=== PATIENT | male | born 1945 | race Caucasian/White ===

== ENCOUNTER 2017-11-06 12:40 | Inpatient (IN) | payer OTHER, MEDICARE ==
--- NOTE | 2017-11-06 13:57 | PDOC ---
Attending Attestation - HPI HPI: 11/06/17 14:08 The patient is a 72 year old male, current cigarette smoker (2 cigarettes daily ) with coronary artery disease (four stents) who presents to the emergency department with urinary retention fever and chills since today. He reports experiencing similar symptoms in the past. The patient denies any alleviating and modifying factors. The patient denies any abdominal pain, diarrhea, vomiting, and back pain. - Physicial Exam PE: 11/06/17 14:15 Vitals: Triage Vital signs reviewed General Appearance: no acute distress, well nourished well developed, Head: Atraumatic, normocephalic Eyes: Pupils equal reactive round, extraocular movement intact Throat: mucous membranes moist, Neck: Supple;No Nuchal rigidity Chest Wall: Nontender Cardiac: Regular rate and rhythm, no murmurs, no rubs, no gallops, Lungs: Clear to auscultation bilateral, good air movement bilaterally, Abdomen: Soft, nondistended, normal bowel sounds, nontender to palpation Rectal: Exam deferred Extremities: Full range of motion to all extremities, no cyanosis, clubbing, or edema Skin: Warm and dry, no rashes or lesions, no petechiae Neuro: AOX3; Cranial Nerves 2-12 grossly c intact, Strength intact to all extremities, Sensation intact to all extremities, gait normal Psych: normal mood, normal affect - Medical Decision Making 11/06/17 14:00 Documentation prepared by Chela Su, acting as paramedical aide for Kevon Peralta MD. <Chela Su - Last Filed: 11/06/17 14:08> - Resident Resident Name: Tobi Fuller - ED Attending Attestation I have performed the following: I have examined & evaluated the patient, The case was reviewed & discussed with the resident, I agree w/resident's findings & plan, Exceptions are as noted - Medical Decision Making 11/06/17 16:23 History and examination consistent with urinary obstruction secondary to UTI. Patient slightly hypotensive upon arrival. IV fluids ordered. Pressure responded appropriately. Lactic within normal limits. Patient covered with ceftriaxone. The to medicine for further management. Urology consult. <Kevon Peralta - Last Filed: 11/06/17 16:23>
[2017-11-06] MEDS ORDERED: SODIUM CHLORIDE 0.9% 1000 ML INFUS.BAG IV STA ×2 (14:01→14:04)
[2017-11-06] MEDS ORDERED: LIDOCAINE HCL 2% JELLY 10 ML CARTRIDGE ONE (14:35)
[2017-11-06 14:53] LABS: BASO % 0.1 % (0-2.0); HEMATOCRIT 38.9 % (35.4-49); HEMOGLOBIN 12.7 GM/dL (11.7-16.9); LYMPH % 4.2 % (8-40); MCH 31.3 pg (25.7-33.7); MCHC 32.7 g/dl (32.0-35.9); MEAN CELL VOLUME 95.6 fl (80-96); MEAN PLT VOLUME 9.4 fl (7.5-11.1); MONO % 10.7 % (3.8-10.2); PLATELET COUNT 176 K/MM3 (134-434); RBC 4.07 M/mm3 (4.00-5.60); RDW 13.5 % (11.9-15.9); WHITE BLOOD COUNT 11.7 K/mm3 (4.0-10.0)
--- NOTE | 2017-11-06 14:57 | PDOC ---
History of Present Illness - General Chief Complaint: Urinary Problem Stated Complaint: URINARY PROBLEM Time Seen by Provider: 11/06/17 13:26 History Source: Patient Exam Limitations: No Limitations - History of Present Illness Initial Comments: 11/06/17 14:51 Patient is a 72M with history of BPH, urinary obstruction requiring prior stallings placement, CAD s/p stenting, HTN, and HLD here today complaining of dysuria and urinary retention. He states that he had dysuria yesterday then stopped being able to urinate starting last night, approximately 16 hours ago. He endorses associated fevers and chills. Denies abdominal pain, nausea, vomiting, chest pain, and shortness of breath. Urologist: Dr Marcus Ivey PCP: Dr Efren Ivey Past History - Past Medical History Allergies/Adverse Reactions: Allergies Allergy/AdvReac Type Severity Reaction Status Date / Time No Known Allergies Allergy Verified 11/06/17 12:55 Home Medications: Ambulatory Orders Unobtainable 11/06/17 Anemia: No Cancer: No Cardiac Disorders: Yes (CAD) CVA: No COPD: No CHF: No Diabetes: No HTN: Yes Hypercholesterolemia: Yes - Surgical History Cardiac Surgery: Yes (mLAD 2.13 stents) - Suicide/Smoking/Psychosocial Hx Smoking Status: Yes Smoking History: Current every day smoker Have you smoked in the past 12 months: No Number of Cigarettes Smoked Daily: 2 Information on smoking cessation initiated: No Hx Alcohol Use: No Drug/Substance Use Hx: No Substance Use Type: None Review of Systems - Review of Systems Comments:: 11/06/17 14:55 GENERAL/CONSTITUTIONAL: Positive for fevers and chills. No weakness. HEAD, EYES, EARS, NOSE AND THROAT: No change in vision. No sore throat. CARDIOVASCULAR: No chest pain or shortness of breath RESPIRATORY: No cough, wheezing, or hemoptysis. GASTROINTESTINAL: No nausea, vomiting, diarrhea or constipation. GENITOURINARY: Positive for dysuria and urinary frequency. MUSCULOSKELETAL: No joint or muscle swelling or pain. No neck or back pain. SKIN: No rash NEUROLOGIC: No headache, vertigo, loss of consciousness, or change in strength/ sensation. HEMATOLOGIC/LYMPHATIC: No anemia, easy bleeding, or history of blood clots. ALLERGIC/IMMUNOLOGIC: No hives or skin allergy. *Physical Exam - Vital Signs Last Vital Signs Temp Pulse Resp BP Pulse Ox 100.9 F H 95 H 18 90/44 99 11/06/17 13:50 11/06/17 12:50 11/06/17 12:50 11/06/17 12:50 11/06/17 12:50 - Physical Exam Comments: 11/06/17 14:56 GENERAL: Awake, alert, and fully oriented, in no acute distress HEAD: No signs of trauma, normocephalic, atraumatic EYES: PERRLA, EOMI, sclera anicteric, conjunctiva clear ENT: Auricles normal inspection, hearing grossly normal, nares patent, oropharynx clear without exudates. Moist mucosa LUNGS: No distress, speaks full sentences, clear to auscultation bilaterally HEART: Regular rate and rhythm, normal S1 and S2, no murmurs, rubs or gallops, peripheral pulses normal and equal bilaterally. ABDOMEN: Soft, nontender, normoactive bowel sounds. No guarding, no rebound. No masses EXTREMITIES: Normal inspection, Normal range of motion, no edema. No clubbing or cyanosis. NEUROLOGICAL: Cranial nerves II through XII grossly intact. Normal speech, no focal sensorimotor deficits SKIN: Warm, Dry, normal turgor, no rashes or lesions noted. ED Treatment Course - LABORATORY CBC & Chemistry Diagram: 11/06/17 14:01 11/06/17 14:30 - RADIOLOGY Radiology Studies Ordered: Category Date Time Status CHEST X-RAY PORTABLE* [RAD] Stat Radiology 11/06/17 14:01 Ordered - Medications Given in the ED: ED Medications Discontinued Medications Generic Name Dose Route Start Last Admin Trade Name Freq PRN Reason Stop Dose Admin Sodium Chloride 1,107 ml 11/06/17 14:01 11/06/17 14:40 Normal Saline - 20 ml/kg (1107 ml) 11/06/17 14:02 Not Given IV ONCE STA Medical Decision Making - Medical Decision Making 11/06/17 14:57 72M with history of CAD s/p stenting, HTN, HLD, BPH with outlet obstruction with history of stallings placement here today complaining of dysuria and urinary retention. Vital signs notable for HR of 95, fever of 100.9 and BP of 90/44. Septic workup initiated. Believe patient has UTI complicated by urinary obstruction. Will place stallings. Will give 1L of fluids. Will start ceftriaxone once stallings placed and urine culture drawn. 11/06/17 16:21 Laboratory Tests 04/15/13 11/06/17 11/06/17 05:50 14:01 14:30 WBC 11.7 H D Hgb 12.7 D Hct 38.9 D Plt Count 176 D Creatinine 0.9 D 1.4 H D Troponin I < 0.02 Ur Leukocyte Esterase Urine WBC (Auto) 11/06/17 15:01 WBC Hgb Hct Plt Count Creatinine Troponin I Ur Leukocyte Esterase 2+ H Urine WBC (Auto) 52 CBC shows leukocytosis. Cr 1.4, last value 0.9, patient has HIPOLITO. Trop negative. UA positive for UTI. BP after 1L 105/65. Will treat with additional liter of fluid and treat with ceftriaxone. Lactate negative. Dr Marcus Ivey, patient's urologist paged, no response. Placed consult in computer. Will admit to med/surg. *DC/Admit/Observation/Transfer Diagnosis at time of Disposition: UTI (urinary tract infection), HIPOLITO (acute kidney injury) - Discharge Dispostion Condition at time of disposition: Stable Admit: Yes - Referrals Referrals: Efren Ivey MD [Primary Care Provider] - - Patient Instructions - Post Discharge Activity
[2017-11-06 15:05] LABS: INR 1.11 (0.82-1.09); PROTHROMBIN TIME (PATIENT) 12.5 SEC (9.98-11.88)
[2017-11-06 15:08] LABS: ACTIVATED PTT 31.2 SECONDS (26.9-34.4)
[2017-11-06 15:14] LABS: URINE APPEARANCE SLCLOUDY; URINE BILIRUBIN NEGATIVE (NEGATIVE); URINE BLOOD NEGATIVE (NEGATIVE); URINE COLOR AMBER; URINE GLUCOSE (UA) NEGATIVE (NEGATIVE); URINE KETONE NEGATIVE (NEGATIVE); URINE NITRITE NEGATIVE (NEGATIVE)
[2017-11-06 15:15] LABS: URINE LEUK ESTERASE 2+ (NEGATIVE); URINE PROTEIN 1+ (NEGATIVE)
[2017-11-06 15:18] LABS: EPI CELLS RARE /HPF (FEW); URINE MUCUS RARE
[2017-11-06 15:44] LABS: ALBUMIN 3.2 g/dl (3.4-5.0); ALK PHOS 124 U/L (45-117); ANION GAP 8 (8-16); BILIRUBIN,TOTAL 0.5 mg/dL (0.2-1.0); BLOOD UREA NITROGEN 17 mg/dL (7-18); CHLORIDE 104 mmol/L (98-107); CO2 27 mmol/L (21-32); CREATININE 1.4 mg/dL (0.7-1.3); GLUCOSE,RANDOM 112 mg/dL (74-106); POTASSIUM 4.5 mmol/L (3.5-5.1); SGOT/AST 19 U/L (15-37); SGPT/ALT 19 U/L (12-78); SODIUM 139 mmol/L (136-145); TOT PROT 6.9 g/dl (6.4-8.2)
[2017-11-06] MEDS ORDERED: CEFTRIAXONE 1 GM in DEXTROSE 5%-WATER - 50 ML IVPB ONE (15:52)
[2017-11-06] MEDS ORDERED: SODIUM CHLORIDE 1,000 ML IV STA (16:19)
[2017-11-06] MEDS ORDERED: CEFTRIAXONE 1 GM/50 ML BAG ONE (16:26)
[2017-11-06] MEDS ORDERED: ACETAMINOPHEN 325 MG TABLET (FP) PO ONE (18:01)
[2017-11-06] MEDS ORDERED: ACETAMINOPHEN 650 MG/20.3 ML ORAL SOLUTION (CUPS) ONE (18:13)
[2017-11-06 21:36] LABS: VENOUS PC02 36.6 mmHg (38-52); VENOUS PH 7.45 (7.32-7.42)
[2017-11-06 21:37] LABS: VENOUS PO2 42.7 mmHg (28-48)
[2017-11-06 21:47] VITALS: BMI 19.1
[2017-11-07] MEDS: ACETAMINOPHEN 325 MG TABLET (FP) PO PRN ×2 (02:08→16:22)
--- NOTE | 2017-11-07 02:11 | HP ---
Admitting History and Physical - Admission History of Present Illness: Pt is a 72 y/o male with PMH significant for BPH, CAD(s/p stenting), HTN and HLD. Pt presented to the ER bc of dysuria and urinary retention. Pt also complains of fever and chills. He denies any abdominal pain/nausea/vomiting/. In the ER pt found to have WBC of 11.7 and tmax of 102.3. - Past Medical History Cardiovascular: Yes: CAD, HTN, Hyperlipdemia Renal/: Yes: BPH - Past Surgical History Additional Past Surgical History: Cardiac stents - Smoking History Smoking history: Current every day smoker Have you smoked in the past 12 months: No Aproximately how many cigarettes per day: 2 - Alcohol/Substance Use Hx Alcohol Use: No Home Medications - Allergies Allergies/Adverse Reactions: Allergies Allergy/AdvReac Type Severity Reaction Status Date / Time No Known Allergies Allergy Verified 11/06/17 12:55 - Home Medications Home Medications: Ambulatory Orders Ascorbate Calcium [Vitamin C] 0 mg PO DAILY 11/06/17 Multivitamin [Daily Multiple Vitamin] 1 each PO DAILY 11/06/17 Tamsulosin HCl [Flomax] 0.4 mg PO DAILY 11/06/17 Ertapenem Sodium [Invanz -] 1 gm IVPB DAILY vial 11/11/17 Family Disease History - Family Disease History Family History: Unremarkable Review of Systems - Review of Systems Constitutional: reports: Chills, Fever Eyes: reports: No Symptoms HENT: reports: No Symptoms Neck: reports: No Symptoms Cardiovascular: reports: No Symptoms Respiratory: reports: No Symptoms Gastrointestinal: reports: No Symptoms Genitourinary: reports: Dysuria Physical Examination Vital Signs: Vital Signs Temperature 100.8 F H 11/07/17 01:29 Pulse Rate 80 11/06/17 21:41 Respiratory Rate 18 11/06/17 21:41 Blood Pressure 142/96 11/06/17 21:41 O2 Sat by Pulse Oximetry (%) 93 L 11/06/17 21:41 Constitutional: Yes: No Distress Eyes: Yes: WNL HENT: Yes: WNL Neck: Yes: WNL, Supple Cardiovascular: Yes: WNL, Regular Rate and Rhythm Respiratory: Yes: WNL, Regular, CTA Bilaterally Gastrointestinal: Yes: WNL, Normal Bowel Sounds, Soft Musculoskeletal: Yes: WNL Extremities: Yes: WNL Edema: No Neurological: Yes: WNL, Alert, Oriented ...Motor Strength: WNL Labs: CBC, BMP 11/06/17 14:01 11/06/17 14:30 Problem List - Problems (1) UTI (urinary tract infection) Assessment/Plan: Cont IV antibx Follow cultures Cont IVF ID/Uro consult Code(s): N39.0 - URINARY TRACT INFECTION, SITE NOT SPECIFIED (2) HIPOLITO (acute kidney injury) Assessment/Plan: Due to dehydration Cont to monitor Code(s): N17.9 - ACUTE KIDNEY FAILURE, UNSPECIFIED (3) HTN (hypertension) Assessment/Plan: BP stable Code(s): I10 - ESSENTIAL (PRIMARY) HYPERTENSION (4) HLD (hyperlipidemia) Code(s): E78.5 - HYPERLIPIDEMIA, UNSPECIFIED
[2017-11-07] MEDS: DEXTROSE 5%-0.45% SALINE 1,000 ML IV SCH ×2 (04:08→18:56)
[2017-11-07 08:10] LABS: BASO % 0.3 % (0-2.0); EOS % 0.1 % (0-4.5); HEMATOCRIT 35.5 % (35.4-49); HEMOGLOBIN 11.7 GM/dL (11.7-16.9); LYMPH % 8.7 % (8-40); MCH 31.9 pg (25.7-33.7); MCHC 33.1 g/dl (32.0-35.9); MEAN CELL VOLUME 96.4 fl (80-96); MEAN PLT VOLUME 9.8 fl (7.5-11.1); MONO % 10.2 % (3.8-10.2); NEUT % 80.7 % (42.8-82.8); PLATELET COUNT 143 K/MM3 (134-434); RBC 3.69 M/mm3 (4.00-5.60); WHITE BLOOD COUNT 7.5 K/mm3 (4.0-10.0)
[2017-11-07 08:39] LABS: ALBUMIN 2.5 g/dl (3.4-5.0); ALK PHOS 118 U/L (45-117); ANION GAP 7 (8-16); BILIRUBIN,TOTAL 0.5 mg/dL (0.2-1.0); BLOOD UREA NITROGEN 13 mg/dL (7-18); CALCIUM 8.3 mg/dL (8.5-10.1); CHLORIDE 107 mmol/L (98-107); CO2 24 mmol/L (21-32); CREATININE 1.1 mg/dL (0.7-1.3); GLUCOSE,RANDOM 108 mg/dL (74-106); POTASSIUM 4.1 mmol/L (3.5-5.1); SGOT/AST 21 U/L (15-37); SGPT/ALT 19 U/L (12-78); SODIUM 138 mmol/L (136-145); TOT PROT 5.8 g/dl (6.4-8.2)
[2017-11-07] MEDS: TAMSULOSIN HCL 0.4 MG CAP.ER.24H (FP) PO SCH (09:25)
[2017-11-07] MEDS ORDERED: CEFTRIAXONE 1 G/50 ML PREMIX 50 ML IVPB SCH (10:00)
[2017-11-07] MEDS: HEPARIN NA (PORCINE) 5,000 UNITS/ML 1ML VIAL SQ SCH ×2 (10:36→21:27)
[2017-11-07] MEDS: MULTIVITAMINS (DAILY MVI) TABLET (FP) PO SCH (10:36)
--- NOTE | 2017-11-07 12:37 | EKG ---
Test Reason : Blood Pressure : / mmHG Vent. Rate : 065 BPM Atrial Rate : 065 BPM P-R Int : 138 ms QRS Dur : 076 ms QT Int : 392 ms P-R-T Axes : 082 084 082 degrees QTc Int : 407 ms NORMAL SINUS RHYTHM NORMAL ECG WHEN COMPARED WITH ECG OF 14-APR-2013 08:27, NO SIGNIFICANT CHANGE WAS FOUND Confirmed by DARY KEARNS MD ([id number]) on 11/07/2017 12:36:50 PM Referred By: Confirmed By:DARY KEARNS MD
--- NOTE | 2017-11-07 13:13 | CON.ID ---
Consult Consult Specialty:: infectious iseases Referred by:: Reason for Consultation:: fever, - History of Present Illness Chief Complaint: fever,weakness History of Present Illness: 72 year old male, current cigarette smoker (2 cigarettes daily) with coronary artery disease ) who presents to the emergency department with urinary retention fever and chills He reports experiencing similar symptoms in the past. The patient denies any alleviating and modifying factors. patient has been following with urology for a long time according to the patient he went into sudden obstruction and could not pass urine which was followed with fever and chills patient came to the hospital and was worked up and found to have uti and gm negative bactermia with organism and sens awaited patient receive iv abx and is feeling better now - History Source History Provided By: Patient, Family Member Limitations to Obtaining History: No Limitations - Alcohol/Substance Use Hx Alcohol Use: No - Smoking History Smoking history: Current every day smoker Have you smoked in the past 12 months: No Aproximately how many cigarettes per day: 2 Home Medications - Allergies Allergies/Adverse Reactions: Allergies Allergy/AdvReac Type Severity Reaction Status Date / Time No Known Allergies Allergy Verified 11/06/17 12:55 - Home Medications Home Medications: Ambulatory Orders Ascorbate Calcium [Vitamin C] 0 mg PO DAILY 11/06/17 Multivitamin [Daily Multiple Vitamin] 1 each PO DAILY 11/06/17 Tamsulosin HCl [Flomax] 0.4 mg PO DAILY 11/06/17 Review of Systems - Review of Systems Constitutional: reports: Chills, Fever Eyes: reports: No Symptoms HENT: reports: No Symptoms Neck: reports: No Symptoms Cardiovascular: reports: No Symptoms Respiratory: reports: No Symptoms Gastrointestinal: reports: No Symptoms Genitourinary: reports: Incontinence Musculoskeletal: reports: No Symptoms Integumentary: reports: No Symptoms Neurological: reports: No Symptoms Endocrine: reports: No Symptoms Hematology/Lymphatic: reports: No Symptoms Psychiatric: reports: No Symptoms Physical Exam Vital Signs: Vital Signs Temperature 98.9 F 11/07/17 05:59 Pulse Rate 71 11/07/17 05:59 Respiratory Rate 18 11/07/17 05:59 Blood Pressure 122/74 11/07/17 05:59 O2 Sat by Pulse Oximetry (%) 93 L 11/06/17 21:41 Constitutional: Yes: No Distress, Calm, Thin Neck: Yes: Supple, Trachea Midline Cardiovascular: Yes: Regular Rate and Rhythm Respiratory: Yes: Regular, CTA Bilaterally Gastrointestinal: Yes: Normal Bowel Sounds, Soft Renal/: Yes: Escobar Present Musculoskeletal: Yes: WNL Extremities: Yes: WNL Neurological: Yes: Alert, Oriented Psychiatric: Yes: Alert, Oriented Labs: CBC, BMP 11/07/17 07:16 11/07/17 07:16 Imaging - Results Chest X-ray: Report Reviewed, Image Reviewed Assessment/Plan patient with bacteremia and uti uti gm negative bactermia fever chills plan will start patient on zosyn close watch on the patient await for all cx and identification of the bacteria hydration spoke wiht family
[2017-11-07] MEDS ORDERED: PT OWN MED DRAWER 7, Y5N ONE (14:42)
[2017-11-07] MEDS: PIPERACILLIN/TAZOB 3.375 GM 3.375 GM in DEXTROSE 5%-WATER - 100 ML IVPB SCH ×2 (16:22→18:04)
[2017-11-08] MEDS: PIPERACILLIN/TAZOB 3.375 GM 3.375 GM in DEXTROSE 5%-WATER - 100 ML IVPB SCH ×3 (02:09→17:24)
[2017-11-08] MEDS: DEXTROSE 5%-0.45% SALINE 1,000 ML IV SCH ×2 (03:46→09:30)
[2017-11-08] MEDS: ACETAMINOPHEN 325 MG TABLET (FP) PO PRN (03:47)
[2017-11-08 08:20] LABS: BASO % 0.4 % (0-2.0); EOS % 0.8 % (0-4.5); LYMPH % 13.6 % (8-40); MCH 31.2 pg (25.7-33.7); MCHC 32.3 g/dl (32.0-35.9); MEAN CELL VOLUME 96.4 fl (80-96); MEAN PLT VOLUME 10.2 fl (7.5-11.1); NEUT % 68.2 % (42.8-82.8); PLATELET COUNT 151 K/MM3 (134-434); RBC 3.83 M/mm3 (4.00-5.60)
[2017-11-08 08:44] LABS: ALBUMIN 2.4 g/dl (3.4-5.0); ALK PHOS 139 U/L (45-117); ANION GAP 10 (8-16); BILIRUBIN,TOTAL 0.2 mg/dL (0.2-1.0); BLOOD UREA NITROGEN 13 mg/dL (7-18); CALCIUM 7.9 mg/dL (8.5-10.1); CHLORIDE 105 mmol/L (98-107); CO2 24 mmol/L (21-32); CREATININE 1.3 mg/dL (0.7-1.3); GLUCOSE,RANDOM 103 mg/dL (74-106); POTASSIUM 3.9 mmol/L (3.5-5.1); SGOT/AST 21 U/L (15-37); SGPT/ALT 21 U/L (12-78); SODIUM 139 mmol/L (136-145)
[2017-11-08] MEDS: MULTIVITAMINS (DAILY MVI) TABLET (FP) PO SCH (09:32)
[2017-11-08] MEDS: TAMSULOSIN HCL 0.4 MG CAP.ER.24H (FP) PO SCH (09:32)
[2017-11-08] MEDS: HEPARIN NA (PORCINE) 5,000 UNITS/ML 1ML VIAL SQ SCH ×2 (09:32→23:06)
--- NOTE | 2017-11-08 23:36 | PN ---
Progress Note, Physician - Current Medication List Current Medications: Active Medications Acetaminophen (Tylenol -) 650 mg PO Q4H PRN PRN Reason: FEVER OR PAIN Last Admin: 11/08/17 03:47 Dose: 650 mg Heparin Sodium (Porcine) (Heparin -) 5,000 unit SQ BID [facility] Last Admin: 11/08/17 23:06 Dose: 5,000 unit Dextrose/Sodium Chloride (D5-1/2ns -) 1,000 mls @ 75 mls/hr IV ASDIR [facility] Last Admin: 11/08/17 09:30 Dose: 75 mls/hr Piperacillin Sod/Tazobactam (Sod 3.375 gm/ Dextrose) 100 mls @ 100 mls/hr IVPB Q8H-IV [facility] PRN Reason: Protocol Last Admin: 11/08/17 17:24 Dose: 100 mls/hr Multivitamins/Minerals/Vitamin C (Tab-A-Vit -) 1 tab PO DAILY [facility] Last Admin: 11/08/17 09:32 Dose: 1 tab Tamsulosin HCl (Flomax -) 0.4 mg PO DAILY@0830 [facility] Last Admin: 11/08/17 09:32 Dose: 0.4 mg - Objective Vital Signs: Vital Signs Temperature 97.8 F 11/08/17 18:30 Pulse Rate 66 11/08/17 18:30 Respiratory Rate 20 11/08/17 18:30 Blood Pressure 118/70 11/08/17 18:30 O2 Sat by Pulse Oximetry (%) 98 11/08/17 16:30 Labs: CBC, BMP 11/08/17 07:30 11/08/17 07:30 INR, PTT INR 1.11 (0.82-1.09) 11/06/17 14:30
[2017-11-09] MEDS ORDERED: PT OWN MED DRAWER 7, Y5N ONE ×2 (00:38→09:21)
[2017-11-09] MEDS: PIPERACILLIN/TAZOB 3.375 GM 3.375 GM in DEXTROSE 5%-WATER - 100 ML IVPB SCH ×2 (02:22→12:54)
[2017-11-09] MEDS: DEXTROSE 5%-0.45% SALINE 1,000 ML IV SCH ×2 (02:23→19:57)
[2017-11-09] MEDS: TAMSULOSIN HCL 0.4 MG CAP.ER.24H (FP) PO SCH (08:40)
[2017-11-09] MEDS: MULTIVITAMINS (DAILY MVI) TABLET (FP) PO SCH (10:25)
[2017-11-09] MEDS: HEPARIN NA (PORCINE) 5,000 UNITS/ML 1ML VIAL SQ SCH ×2 (10:25→21:21)
--- NOTE | 2017-11-09 15:01 | PN ---
Progress Note, Physician History of Present Illness: starting to feel better no complaints remaining afebrile - Current Medication List Current Medications: Active Medications Acetaminophen (Tylenol -) 650 mg PO Q4H PRN PRN Reason: FEVER OR PAIN Last Admin: 11/08/17 03:47 Dose: 650 mg Heparin Sodium (Porcine) (Heparin -) 5,000 unit SQ BID [facility] Last Admin: 11/09/17 10:25 Dose: 5,000 unit Dextrose/Sodium Chloride (D5-1/2ns -) 1,000 mls @ 75 mls/hr IV ASDIR [facility] Last Admin: 11/09/17 02:23 Dose: 75 mls/hr Ertapenem 1 gm/ Sodium (Chloride) 50 mls @ 50 mls/hr IVPB DAILY [facility] PRN Reason: Protocol Multivitamins/Minerals/Vitamin C (Tab-A-Vit -) 1 tab PO DAILY [facility] Last Admin: 11/09/17 10:25 Dose: 1 tab Tamsulosin HCl (Flomax -) 0.4 mg PO DAILY@0830 [facility] Last Admin: 11/09/17 08:40 Dose: 0.4 mg - Objective Vital Signs: Vital Signs Temperature 97.9 F 11/09/17 14:18 Pulse Rate 78 11/09/17 14:18 Respiratory Rate 16 11/09/17 14:18 Blood Pressure 116/50 11/09/17 14:18 O2 Sat by Pulse Oximetry (%) 95 11/09/17 09:00 Constitutional: Yes: No Distress, Calm Cardiovascular: Yes: Regular Rate and Rhythm Respiratory: Yes: Regular, CTA Bilaterally Gastrointestinal: Yes: Normal Bowel Sounds, Soft Genitourinary: Yes: Escobar Present Musculoskeletal: Yes: WNL Extremities: Yes: WNL Neurological: Yes: Alert, Oriented Psychiatric: Yes: Alert, Oriented Labs: CBC, BMP 11/08/17 07:30 11/08/17 07:30 INR, PTT INR 1.11 (0.82-1.09) 11/06/17 14:30 Assessment/Plan patient with bacteremia and uti uti gm negative bactermia fever chills plan continue zosyn await for urology await for identification and sensitivities rest as per primary team
--- NOTE | 2017-11-09 15:02 | PN ---
Progress Note, Physician History of Present Illness: doing well no complaints family in room identification is esbl kleb - Current Medication List Current Medications: Active Medications Acetaminophen (Tylenol -) 650 mg PO Q4H PRN PRN Reason: FEVER OR PAIN Last Admin: 11/08/17 03:47 Dose: 650 mg Heparin Sodium (Porcine) (Heparin -) 5,000 unit SQ BID [facility] Last Admin: 11/09/17 10:25 Dose: 5,000 unit Dextrose/Sodium Chloride (D5-1/2ns -) 1,000 mls @ 75 mls/hr IV ASDIR [facility] Last Admin: 11/09/17 02:23 Dose: 75 mls/hr Ertapenem 1 gm/ Sodium (Chloride) 50 mls @ 50 mls/hr IVPB DAILY [facility] PRN Reason: Protocol Multivitamins/Minerals/Vitamin C (Tab-A-Vit -) 1 tab PO DAILY [facility] Last Admin: 11/09/17 10:25 Dose: 1 tab Tamsulosin HCl (Flomax -) 0.4 mg PO DAILY@0830 [facility] Last Admin: 11/09/17 08:40 Dose: 0.4 mg - Objective Vital Signs: Vital Signs Temperature 97.9 F 11/09/17 14:18 Pulse Rate 78 11/09/17 14:18 Respiratory Rate 16 11/09/17 14:18 Blood Pressure 116/50 11/09/17 14:18 O2 Sat by Pulse Oximetry (%) 95 11/09/17 09:00 Constitutional: Yes: No Distress, Calm Neck: Yes: Supple Cardiovascular: Yes: Regular Rate and Rhythm Respiratory: Yes: Regular, CTA Bilaterally Gastrointestinal: Yes: Normal Bowel Sounds, Soft Musculoskeletal: Yes: WNL Extremities: Yes: WNL Neurological: Yes: Alert, Oriented Psychiatric: Yes: Alert, Oriented Labs: CBC, BMP 11/08/17 07:30 11/08/17 07:30 INR, PTT INR 1.11 (0.82-1.09) 11/06/17 14:30 Assessment/Plan patient with bacteremia and uti uti esbl gm negative bactermia fever chills plan will change abx to ertapenam patient will need 2 weeks continue monitoring urology will see he patient
[2017-11-09] MEDS: ERTAPENEM SODIUM 1 GM in SODIUM CHLORIDE 100 ML IVPB SCH (17:39)
--- NOTE | 2017-11-09 20:09 | PN ---
Progress Note, Physician History of Present Illness: No new complaints - Current Medication List Current Medications: Active Medications Acetaminophen (Tylenol -) 650 mg PO Q4H PRN PRN Reason: FEVER OR PAIN Last Admin: 11/08/17 03:47 Dose: 650 mg Heparin Sodium (Porcine) (Heparin -) 5,000 unit SQ BID [facility] Last Admin: 11/09/17 10:25 Dose: 5,000 unit Dextrose/Sodium Chloride (D5-1/2ns -) 1,000 mls @ 75 mls/hr IV ASDIR [facility] Last Admin: 11/09/17 19:57 Dose: 75 mls/hr Ertapenem 1 gm/ Sodium (Chloride) 100 mls @ 100 mls/hr IVPB DAILY [facility] PRN Reason: Protocol Last Admin: 11/09/17 17:39 Dose: 100 mls/hr Multivitamins/Minerals/Vitamin C (Tab-A-Vit -) 1 tab PO DAILY [facility] Last Admin: 11/09/17 10:25 Dose: 1 tab Tamsulosin HCl (Flomax -) 0.4 mg PO DAILY@0830 [facility] Last Admin: 11/09/17 08:40 Dose: 0.4 mg - Objective Vital Signs: Vital Signs Temperature 97.4 F L 11/09/17 16:15 Pulse Rate 66 11/09/17 16:15 Respiratory Rate 18 11/09/17 16:15 Blood Pressure 93/52 11/09/17 16:15 O2 Sat by Pulse Oximetry (%) 95 11/09/17 09:00 Neck: Yes: WNL, Supple Cardiovascular: Yes: WNL, Regular Rate and Rhythm Respiratory: Yes: WNL, Regular, CTA Bilaterally Gastrointestinal: Yes: WNL, Normal Bowel Sounds, Soft Extremities: Yes: WNL Edema: No Labs: CBC, BMP 11/08/17 07:30 11/08/17 07:30 INR, PTT INR 1.11 (0.82-1.09) 11/06/17 14:30 Problem List - Problems (1) UTI (urinary tract infection) Assessment/Plan: Cont IV antibx (+) bacteremia klebsiella pneumoniae Urine cultures (+) ESBL Will speak to ID about PIC line and duration of IV antibxs Cont IVF ID/Uro consult Code(s): N39.0 - URINARY TRACT INFECTION, SITE NOT SPECIFIED (2) HIPOLITO (acute kidney injury) Assessment/Plan: Due to dehydration Cont to monitor Code(s): N17.9 - ACUTE KIDNEY FAILURE, UNSPECIFIED (3) BPH (benign prostatic hyperplasia) Assessment/Plan: Cont flomax Code(s): N40.0 - BENIGN PROSTATIC HYPERPLASIA WITHOUT LOWER URINRY TRACT SYMP (4) HLD (hyperlipidemia) Code(s): E78.5 - HYPERLIPIDEMIA, UNSPECIFIED (5) HTN (hypertension) Code(s): I10 - ESSENTIAL (PRIMARY) HYPERTENSION
[2017-11-10] MEDS: TAMSULOSIN HCL 0.4 MG CAP.ER.24H (FP) PO SCH (08:39)
[2017-11-10] MEDS ORDERED: PT OWN MED DRAWER 7, Y5N ONE (10:12)
[2017-11-10] MEDS: HEPARIN NA (PORCINE) 5,000 UNITS/ML 1ML VIAL SQ SCH ×2 (10:15→21:19)
[2017-11-10] MEDS: MULTIVITAMINS (DAILY MVI) TABLET (FP) PO SCH (10:15)
[2017-11-10] MEDS: ERTAPENEM SODIUM 1 GM in SODIUM CHLORIDE 100 ML IVPB SCH (10:22)
--- NOTE | 2017-11-10 11:51 | PN ---
Progress Note, Physician History of Present Illness: doing well no complaints foleys removed - Current Medication List Current Medications: Active Medications Acetaminophen (Tylenol -) 650 mg PO Q4H PRN PRN Reason: FEVER OR PAIN Last Admin: 11/08/17 03:47 Dose: 650 mg Heparin Sodium (Porcine) (Heparin -) 5,000 unit SQ BID [facility] Last Admin: 11/10/17 10:15 Dose: 5,000 unit Ertapenem 1 gm/ Sodium (Chloride) 100 mls @ 100 mls/hr IVPB DAILY [facility] PRN Reason: Protocol Last Admin: 11/10/17 10:22 Dose: 100 mls/hr Sodium Chloride (1/2 Normal Saline) 1,000 mls @ 75 mls/hr IV ASDIR [facility] Multivitamins/Minerals/Vitamin C (Tab-A-Vit -) 1 tab PO DAILY [facility] Last Admin: 11/10/17 10:15 Dose: 1 tab Tamsulosin HCl (Flomax -) 0.4 mg PO DAILY@0830 [facility] Last Admin: 11/10/17 08:39 Dose: 0.4 mg - Objective Vital Signs: Vital Signs Temperature 97.5 F L 11/10/17 08:30 Pulse Rate 58 L 11/10/17 08:30 Respiratory Rate 20 11/10/17 08:30 Blood Pressure 115/67 11/10/17 08:30 O2 Sat by Pulse Oximetry (%) 93 L 11/09/17 21:00 Constitutional: Yes: No Distress, Calm HENT: Yes: Atraumatic Cardiovascular: Yes: Regular Rate and Rhythm Respiratory: Yes: Regular, CTA Bilaterally Gastrointestinal: Yes: Normal Bowel Sounds, Soft Musculoskeletal: Yes: WNL Extremities: Yes: WNL Neurological: Yes: Alert, Oriented Psychiatric: Yes: Alert, Oriented Labs: CBC, BMP 11/08/17 07:30 11/08/17 07:30 INR, PTT INR 1.11 (0.82-1.09) 11/06/17 14:30 Assessment/Plan patient with bacteremia and uti uti esbl gm negative bactermia fever chills plan continue abx await for repeat blood cx to be back urology evaluated the patient rest as per primary
[2017-11-10] MEDS: SODIUM CHLORIDE 0.45% 1,000 ML IV SCH (11:56)
--- NOTE | 2017-11-10 22:50 | PN ---
Progress Note, Physician History of Present Illness: No new complaints - Current Medication List Current Medications: Active Medications Acetaminophen (Tylenol -) 650 mg PO Q4H PRN PRN Reason: FEVER OR PAIN Last Admin: 11/08/17 03:47 Dose: 650 mg Heparin Sodium (Porcine) (Heparin -) 5,000 unit SQ BID [facility] Last Admin: 11/10/17 21:19 Dose: 5,000 unit Ertapenem 1 gm/ Sodium (Chloride) 100 mls @ 100 mls/hr IVPB DAILY [facility] PRN Reason: Protocol Last Admin: 11/10/17 10:22 Dose: 100 mls/hr Sodium Chloride (1/2 Normal Saline) 1,000 mls @ 75 mls/hr IV ASDIR [facility] Last Admin: 11/10/17 11:56 Dose: 75 mls/hr Multivitamins/Minerals/Vitamin C (Tab-A-Vit -) 1 tab PO DAILY [facility] Last Admin: 11/10/17 10:15 Dose: 1 tab Tamsulosin HCl (Flomax -) 0.4 mg PO DAILY@0830 [facility] Last Admin: 11/10/17 08:39 Dose: 0.4 mg - Objective Vital Signs: Vital Signs Temperature 98 F 11/10/17 16:15 Pulse Rate 56 L 11/10/17 16:15 Respiratory Rate 18 11/10/17 16:15 Blood Pressure 113/61 11/10/17 16:15 O2 Sat by Pulse Oximetry (%) 93 L 11/09/17 21:00 Constitutional: Yes: No Distress HENT: Yes: WNL Neck: Yes: WNL, Supple Cardiovascular: Yes: WNL, Regular Rate and Rhythm Respiratory: Yes: WNL, Regular, CTA Bilaterally Gastrointestinal: Yes: WNL, Normal Bowel Sounds, Soft Extremities: Yes: WNL Edema: No Labs: CBC, BMP 11/08/17 07:30 11/08/17 07:30 INR, PTT INR 1.11 (0.82-1.09) 11/06/17 14:30 Problem List - Problems (1) UTI (urinary tract infection) Assessment/Plan: Urine/blood cultures positive Esbl Cont IV ivanz Repeat BC negative to date As per ID Will need IV antibxs x 2 weeks Uro consult pending Code(s): N39.0 - URINARY TRACT INFECTION, SITE NOT SPECIFIED (2) HTN (hypertension) Assessment/Plan: BP stable Code(s): I10 - ESSENTIAL (PRIMARY) HYPERTENSION (3) BPH (benign prostatic hyperplasia) Assessment/Plan: Cont flomax Code(s): N40.0 - BENIGN PROSTATIC HYPERPLASIA WITHOUT LOWER URINRY TRACT SYMP (4) HLD (hyperlipidemia) Code(s): E78.5 - HYPERLIPIDEMIA, UNSPECIFIED (5) HIPOLITO (acute kidney injury) Assessment/Plan: Due to dehydration Creatinine improved and resolved Code(s): N17.9 - ACUTE KIDNEY FAILURE, UNSPECIFIED
[2017-11-11] MEDS: SODIUM CHLORIDE 0.45% 1,000 ML IV SCH ×2 (02:05→16:49)
[2017-11-11 08:11] LABS: ALBUMIN 2.5 g/dl (3.4-5.0); ANION GAP 5 (8-16); CALCIUM 8.3 mg/dL (8.5-10.1); CHLORIDE 106 mmol/L (98-107); CO2 27 mmol/L (21-32); POTASSIUM 4.7 mmol/L (3.5-5.1); SODIUM 138 mmol/L (136-145)
[2017-11-11 08:17] LABS: ALK PHOS 165 U/L (45-117); BILIRUBIN,TOTAL 0.4 mg/dL (0.2-1.0); BLOOD UREA NITROGEN 17 mg/dL (7-18); GLUCOSE,RANDOM 88 mg/dL (74-106); SGOT/AST 99 U/L (15-37); SGPT/ALT 90 U/L (12-78); TOT PROT 6.1 g/dl (6.4-8.2)
[2017-11-11 08:23] LABS: BASO % 0.5 % (0-2.0); EOS % 3.1 % (0-4.5); HEMATOCRIT 38.2 % (35.4-49); HEMOGLOBIN 12.3 GM/dL (11.7-16.9); MCHC 32.2 g/dl (32.0-35.9); MEAN CELL VOLUME 96.3 fl (80-96); MONO % 13.5 % (3.8-10.2); NEUT % 59.9 % (42.8-82.8); PLATELET COUNT 242 K/MM3 (134-434); RBC 3.96 M/mm3 (4.00-5.60); RDW 13.9 % (11.9-15.9); WHITE BLOOD COUNT 6.7 K/mm3 (4.0-10.0)
[2017-11-11] MEDS: TAMSULOSIN HCL 0.4 MG CAP.ER.24H (FP) PO SCH (08:23)
[2017-11-11] MEDS ORDERED: PT OWN MED DRAWER 7, Y5N ONE (10:25)
[2017-11-11] MEDS: HEPARIN NA (PORCINE) 5,000 UNITS/ML 1ML VIAL SQ SCH (10:30)
[2017-11-11] MEDS: MULTIVITAMINS (DAILY MVI) TABLET (FP) PO SCH (10:30)
[2017-11-11] MEDS: ERTAPENEM SODIUM 1 GM in SODIUM CHLORIDE 100 ML IVPB SCH (10:30)
--- NOTE | 2017-11-11 10:34 | PN ---
Progress Note, Physician History of Present Illness: patient stable no new issues - Current Medication List Current Medications: Active Medications Acetaminophen (Tylenol -) 650 mg PO Q4H PRN PRN Reason: FEVER OR PAIN Last Admin: 11/08/17 03:47 Dose: 650 mg Heparin Sodium (Porcine) (Heparin -) 5,000 unit SQ BID [facility] Last Admin: 11/11/17 10:30 Dose: 5,000 unit Ertapenem 1 gm/ Sodium (Chloride) 100 mls @ 100 mls/hr IVPB DAILY [facility] PRN Reason: Protocol Last Admin: 11/11/17 10:30 Dose: 100 mls/hr Sodium Chloride (1/2 Normal Saline) 1,000 mls @ 75 mls/hr IV ASDIR [facility] Last Admin: 11/11/17 02:05 Dose: 75 mls/hr Multivitamins/Minerals/Vitamin C (Tab-A-Vit -) 1 tab PO DAILY [facility] Last Admin: 11/11/17 10:30 Dose: 1 tab Tamsulosin HCl (Flomax -) 0.4 mg PO DAILY@0830 [facility] Last Admin: 11/11/17 08:23 Dose: 0.4 mg - Objective Vital Signs: Vital Signs Temperature 98.0 F 11/11/17 06:00 Pulse Rate 57 L 11/11/17 06:00 Respiratory Rate 18 11/11/17 06:00 Blood Pressure 104/60 11/11/17 06:00 O2 Sat by Pulse Oximetry (%) 93 L 11/10/17 21:00 Constitutional: Yes: No Distress, Calm Cardiovascular: Yes: Regular Rate and Rhythm Respiratory: Yes: Regular, CTA Bilaterally Gastrointestinal: Yes: Normal Bowel Sounds, Soft Musculoskeletal: Yes: WNL Extremities: Yes: WNL Neurological: Yes: Alert, Oriented Psychiatric: Yes: Alert, Oriented Labs: CBC, BMP 11/11/17 06:30 11/11/17 06:30 INR, PTT INR 1.11 (0.82-1.09) 11/06/17 14:30 Assessment/Plan robflaviom List - Problems (1) UTI (urinary tract infection) Code(s): N39.0 - URINARY TRACT INFECTION, SITE NOT SPECIFIED (2) HTN (hypertension) Assessment/Plan: BP stable Code(s): I10 - ESSENTIAL (PRIMARY) HYPERTENSION (3) BPH (benign prostatic hyperplasia) Assessment/Plan: Cont flomax Code(s): N40.0 - BENIGN PROSTATIC HYPERPLASIA WITHOUT LOWER URINRY TRACT SYMP (4) HLD (hyperlipidemia) Code(s): E78.5 - HYPERLIPIDEMIA, UNSPECIFIED (5) HIPOLITO (acute kidney injury) Code(s): N17.9 - ACUTE KIDNEY FAILURE, UNSPECIFIED repeat blood cx negative plan continue current abx 9 days from tomorrow rest as per primary team follow with urology
[2017-11-11 11:44] VITALS: BP 105/63; PULSE 60; TEMP 97.5
[2017-11-11] MEDS ORDERED: PICC LINE 8 ML FLUSH PROTOCOL IVPUSH PRN (13:32)
--- NOTE | 2017-11-11 18:23 | DS ---
Physical Examination Vital Signs: Vital Signs Temperature 97.5 F L 11/11/17 08:20 Pulse Rate 60 11/11/17 08:20 Respiratory Rate 18 11/11/17 08:20 Blood Pressure 105/63 11/11/17 08:20 O2 Sat by Pulse Oximetry (%) 93 L 11/10/17 21:00 Constitutional: Yes: No Distress Neck: Yes: WNL, Supple Cardiovascular: Yes: WNL, Regular Rate and Rhythm Respiratory: Yes: WNL, Regular, CTA Bilaterally Gastrointestinal: Yes: WNL, Normal Bowel Sounds, Soft Labs: CBC, BMP 11/11/17 06:30 11/11/17 06:30 Discharge Summary Reason For Visit: URINARY TRACT INFECTION Current Active Problems HIPOLITO (acute kidney injury) (Acute) BPH (benign prostatic hyperplasia) (Acute) HLD (hyperlipidemia) (Acute) HTN (hypertension) (Acute) UTI (urinary tract infection) (Acute) Hospital Course: Patient is a 72M with history of BPH, urinary obstruction, CAD s/p stenting, HTN , and HLD. Pt was hospitalized and treated for UTI w/ IV antibxs. Pt initially had stallings catheter wc was removed and is now urinating on his own without problems. Pt found to have (+) urine culture for ESBL. Pt also had (+) blood cultures for Klebsiella pneumonia-ESBL however repeat blood cultures were done wc were negative. Pt was followed by infectious disease and had PIC line placement and IV antibxs were changed to IV ivanz and it was determined that he is to get another 9 days of IV ivanz. Pt to be discharged home w/ PIC line and IV atnibxs Condition: Good - Instructions Diet, Activity, Other Instructions: 2 gram sodium diet See Dr Ivey next week or Pa at 1pm Referrals: Efren Ivey MD [Primary Care Provider] - Disposition: VNS/HOME HEALTH CARE - Home Medications Comprehensive Discharge Medication List: Ambulatory Orders Ascorbate Calcium [Vitamin C] 0 mg PO DAILY 11/06/17 Multivitamin [Daily Multiple Vitamin] 1 each PO DAILY 11/06/17 Tamsulosin HCl [Flomax] 0.4 mg PO DAILY 11/06/17 Ertapenem Sodium [Invanz -] 1 gm IVPB DAILY vial 11/11/17
== END 2017-11-11 18:23 | disposition home health service (06) | DRG 690 ==
LOC: JER 12:40 → JERBED 16:55 → J5S 21:40 → J8W 11-08 18:13
PROVIDERS: ADMIT Internal Medicine; ATTEND Internal Medicine
PROC: 02HV33Z Insertion of Infusion Device into Superior Vena Cava, Percutaneous Approach (ICD-10-PCS; principal; 2017-11-11)
PROC: B518ZZA Fluoroscopy of Superior Vena Cava, Guidance (ICD-10-PCS; 2017-11-11)
DX: N39.0 Urinary tract infection, site not specified (principal); R78.81 Bacteremia; N17.9 Acute kidney failure, unspecified; N13.8 Other obstructive and reflux uropathy; I25.10 Atherosclerotic heart disease of native coronary artery without angina pectoris; F17.210 Nicotine dependence, cigarettes, uncomplicated; Z95.5 Presence of coronary angioplasty implant and graft; E78.5 Hyperlipidemia, unspecified; N40.1 Benign prostatic hyperplasia with lower urinary tract symptoms; E86.0 Dehydration; B96.1 Klebsiella pneumoniae [K. pneumoniae] as the cause of diseases classified elsewhere
CPT/HCPCS: 36415; 36569; 71045-TC; 76775-TC; 76856-TC; 77001-TC-FY; 80053; 81003; 81015; 82550; 82803; 83605; 84484; 85025; 85610; 85730; 86850; 86900; 86901; 87040; 87086; 87186; 93005; 93010; 99285-25; C1751; J1644

== ENCOUNTER 2017-11-20 13:49 | Observation (INO) | payer OTHER, MEDICARE ==
[2017-11-20 14:14] VITALS: BMI 18.4
[2017-11-20] MEDS ORDERED: SODIUM CHLORIDE 1,000 ML IV STA (17:21)
--- NOTE | 2017-11-20 17:21 | PDOC ---
History of Present Illness - General Chief Complaint: Weakness Stated Complaint: PCP SENT, WEAKNESS Time Seen by Provider: 11/20/17 17:06 History Source: Patient Exam Limitations: No Limitations - History of Present Illness Initial Comments: CHIEF COMPLAINT: 72 y/o afebrile male with PMH BPH, CAD (stents - not on blood thinner) c/o diarrhea and weight loss x 3 days. HISTORY OF PRESENT ILLNESS: The patient was admitted last week for a UTI and was getting IV antibiotics. He went home with a PICC line in place and continued with the antibiotics with last dose yesterday. 3 days ago he began c/ o abdominal pain and diarrhea and saw his PCP, Dr. Frances Ivey, who prescribed him PO bactrim and PO pantoprazole. He states since then he's had watery diarrhea every time he eats or drinks. He is now very weak and has no appetite. The patient had a tactile fever yesterday. He denies WAGONER, cough, vomiting, BRBPR, melena, CP, SOB, abd pain. Vital signs on arrival are notable for O2 sat of 96% on RA. PCP is Dr. Efren Ivye ID is Dr. Clinton REVIEW OF SYSTEMS: GENERAL/CONSTITUTIONAL: No fever/chills. +weakness. +weight loss HEAD, EYES, EARS, NOSE AND THROAT: No change in vision. No ear pain or discharge. No sore throat. CARDIOVASCULAR: No chest pain or shortness of breath. RESPIRATORY: No cough, wheezing, or hemoptysis. GASTROINTESTINAL: +watery diarrhea. No nausea, vomiting, abd pain. GENITOURINARY: No dysuria, frequency, or change in urination. MUSCULOSKELETAL: No joint or muscle swelling or pain. No neck or back pain. SKIN: No rash or easy bruising. NEUROLOGIC: No headache, vertigo, loss of consciousness, or loss of sensation. PHYSICAL EXAM: GENERAL: The patient is awake, alert, and fully oriented, in no acute distress. He appears frail and weak. HEAD: Normal with no signs of trauma. ENT: Pupils equal, round and reactive to light, extraocular movements intact, sclera anicteric, conjunctiva clear. Neck supple. LUNGS: Clear to auscultation bilaterally. Normal excursion. No respiratory distress or use of accessory muscles. CV: RRR, S1/S2, no MRG. Cap refill < 2 sec. ABDOMEN: Soft, non-distended, non-tender even to deep palpation, no hepatomegaly or splenomegaly, no masses. Hyperactive bowel sounds in lower quadrants. No guarding. EXTREMITIES: Normal range of motion, no edema. NEUROLOGICAL: Normal speech, normal gait. CN II-XII grossly intact. PSYCH: Normal mood, normal affect. SKIN: Decreased turgor. Warm, dry, no rashes or lesions noted. Past History - Past Medical History Allergies/Adverse Reactions: Allergies Allergy/AdvReac Type Severity Reaction Status Date / Time No Known Allergies Allergy Verified 11/20/17 14:14 Home Medications: Ambulatory Orders Ascorbate Calcium [Vitamin C] 0 mg PO DAILY 11/06/17 Multivitamin [Daily Multiple Vitamin] 1 each PO DAILY 11/06/17 Tamsulosin HCl [Flomax] 0.4 mg PO DAILY 11/06/17 Anemia: No Cancer: No Cardiac Disorders: Yes (CAD) CVA: No COPD: No CHF: No Diabetes: No HTN: Yes Hypercholesterolemia: Yes - Surgical History Cardiac Surgery: Yes (mLAD 2.13 stents) - Immunization History Immunization Up to Date: Yes - Suicide/Smoking/Psychosocial Hx Smoking Status: Yes Smoking History: Current every day smoker Have you smoked in the past 12 months: Yes Number of Cigarettes Smoked Daily: 2 Information on smoking cessation initiated: No Hx Alcohol Use: No Drug/Substance Use Hx: No Substance Use Type: None *Physical Exam - Vital Signs Last Vital Signs Temp Pulse Resp BP Pulse Ox 97.8 F 70 18 115/57 96 11/20/17 14:09 11/20/17 14:09 11/20/17 14:09 11/20/17 14:09 11/20/17 14:09 ED Treatment Course - LABORATORY CBC & Chemistry Diagram: 11/20/17 18:20 11/20/17 18:20 Medical Decision Making - Medical Decision Making A/P: 72 y/o male with weakness secondary to watery diarrhea x 3 days. Plan is as follows: 1. Labs 2. Stool cultures 3. IV fluids I am signing this patient out to my colleague: CHARISSE Burch In brief, this patient is being seen in the ED for a chief complaint of: watery diarrhea I have completed the initial assessment interview note and have ordered: labs, stool culture I have reviewed the following results: cbc Pending results are: rest Please call the PCP: Efren Ivey Plan for disposition is as follows: Pending *DC/Admit/Observation/Transfer Diagnosis at time of Disposition: Diarrhea Qualifiers: Diarrhea type: unspecified type Qualified Code(s): R19.7 - Diarrhea, unspecified - Referrals Referrals: Efren Ivey MD [Primary Care Provider] - - Patient Instructions - Post Discharge Activity
[2017-11-20 18:31] LABS: BASO % 0.5 % (0-2.0); HEMATOCRIT 41.7 % (35.4-49); HEMOGLOBIN 13.9 GM/dL (11.7-16.9); MCH 31.7 pg (25.7-33.7); MCHC 33.3 g/dl (32.0-35.9); MEAN CELL VOLUME 95.1 fl (80-96); MEAN PLT VOLUME 8.9 fl (7.5-11.1); MONO % 16.4 % (3.8-10.2); NEUT % 54.1 % (42.8-82.8); PLATELET COUNT 256 K/MM3 (134-434); RBC 4.38 M/mm3 (4.00-5.60); RDW 14.4 % (11.9-15.9); WHITE BLOOD COUNT 4.9 K/mm3 (4.0-10.0)
[2017-11-20 19:59] LABS: ALBUMIN 2.8 g/dl (3.4-5.0); ANION GAP 8 (8-16); BILIRUBIN,TOTAL 0.2 mg/dL (0.2-1.0); BLOOD UREA NITROGEN 30 mg/dL (7-18); CALCIUM 7.6 mg/dL (8.5-10.1); CHLORIDE 106 mmol/L (98-107); CO2 24 mmol/L (21-32); CREATININE 1.8 mg/dL (0.7-1.3); GLUCOSE,RANDOM 86 mg/dL (74-106); POTASSIUM 4.9 mmol/L (3.5-5.1); SGOT/AST 69 U/L (15-37); SGPT/ALT 74 U/L (12-78); SODIUM 138 mmol/L (136-145); TOT PROT 6.5 g/dl (6.4-8.2)
[2017-11-20 20:01] LABS: ALK PHOS 113 U/L (45-117)
--- NOTE | 2017-11-20 20:04 | PDOC ---
*Physical Exam - Vital Signs Last Vital Signs Temp Pulse Resp BP Pulse Ox 97.8 F 70 18 115/57 96 11/20/17 14:09 11/20/17 14:09 11/20/17 14:09 11/20/17 14:09 11/20/17 14:09 - Physical Exam General Appearance: Yes: Appropriately Dressed. No: Apparent Distress HEENT: positive: DIAMOND, Normal ENT Inspection Neck: positive: Trachea midline, Supple Respiratory/Chest: positive: Lungs Clear, Normal Breath Sounds. negative: Respiratory Distress, Accessory Muscle Use Cardiovascular: positive: Regular Rhythm, Regular Rate Gastrointestinal/Abdominal: positive: Soft. negative: Normal Bowel Sounds, Tender Musculoskeletal: positive: Normal Inspection. negative: CVA Tenderness Extremity: positive: Normal Capillary Refill, Normal Inspection Integumentary: positive: Normal Color, Dry, Warm Neurologic: positive: trimmer sorter II-XII NML intact, Fully Oriented, Alert, Normal Mood/ Affect, Normal Response, Motor Strength /5 ED Treatment Course - LABORATORY CBC & Chemistry Diagram: 11/20/17 18:20 11/20/17 19:00 - ADDITIONAL ORDERS Additional order review: Laboratory Results 11/20/17 18:20 Sodium Cancelled Potassium Cancelled Chloride Cancelled Carbon Dioxide Cancelled Anion Gap Cancelled BUN Cancelled Creatinine Cancelled Creat Clearance w eGFR Cancelled Random Glucose Cancelled Calcium Cancelled Total Bilirubin Cancelled AST Cancelled ALT Cancelled Alkaline Phosphatase Cancelled Creatine Kinase Cancelled Troponin I Cancelled Total Protein Cancelled Albumin Cancelled 11/20/17 18:20 RBC 4.38 MCV 95.1 MCHC 33.3 RDW 14.4 MPV 8.9 D Neutrophils % 54.1 Lymphocytes % 29.0 D Monocytes % 16.4 H Eosinophils % 0.0 D Basophils % 0.5 - Medications Given in the ED: ED Medications Discontinued Medications Generic Name Dose Route Start Last Admin Trade Name Freq PRN Reason Stop Dose Admin Sodium Chloride 1,000 mls @ 1,000 mls/hr 11/20/17 17:21 11/20/17 17:57 Normal Saline - IV 11/20/17 18:20 1,000 mls/hr ASDIR STA Administration Medical Decision Making - Medical Decision Making 11/20/17 20:23 Rec'd pt from [facility]. Patient with persistent diarrhea. Labs notable for HIPOLITO. IV hydration started. 11/20/17 21:[address] Mcclendon who accepts the patient for admission. *DC/Admit/Observation/Transfer Diagnosis at time of Disposition: HIPOLITO (acute kidney injury) Diarrhea Qualifiers: Diarrhea type: unspecified type Qualified Code(s): R19.7 - Diarrhea, unspecified - Discharge Dispostion Condition at time of disposition: Guarded Admit: Yes - Referrals Referrals: Efren Ivey MD [Primary Care Provider] - - Patient Instructions - Post Discharge Activity
[2017-11-20] MEDS ORDERED: SODIUM CHLORIDE 1,000 ML IV SCH (21:45)
[2017-11-21] MEDS ORDERED: HEMOQUE TEST 1 EACH EACH ONE (07:07)
[2017-11-21] MEDS: INSULIN SLIDING SCALE (NOVOLOG) 1 VIAL SQ SCH ×2 (07:15→11:03)
[2017-11-21] MEDS ORDERED: TAMSULOSIN HCL 0.4 MG CAP.ER.24H (FP) PO SCH (08:30)
--- NOTE | 2017-11-21 08:51 | EKG ---
Test Reason : Blood Pressure : / mmHG Vent. Rate : 065 BPM Atrial Rate : 065 BPM P-R Int : 146 ms QRS Dur : 080 ms QT Int : 388 ms P-R-T Axes : 076 080 080 degrees QTc Int : 403 ms NORMAL SINUS RHYTHM NORMAL ECG WHEN COMPARED WITH ECG OF 06-NOV-2017 14:36, NO SIGNIFICANT CHANGE WAS FOUND Confirmed by Darryl Diego ([id number]) on 11/21/2017 8:50:50 AM Referred By: Confirmed By:Darryl Diego
[2017-11-21] MEDS ORDERED: TAMSULOSIN HCL 0.4 MG CAP.ER.24H (FP) ONE (09:56)
[2017-11-21 11:08] LABS: BASO % 0.5 % (0-2.0); EOS % 0.1 % (0-4.5); HEMATOCRIT 41.3 % (35.4-49); HEMOGLOBIN 13.5 GM/dL (11.7-16.9); MCH 31.1 pg (25.7-33.7); MCHC 32.6 g/dl (32.0-35.9); MEAN CELL VOLUME 95.3 fl (80-96); MEAN PLT VOLUME 8.6 fl (7.5-11.1); MONO % 12.1 % (3.8-10.2); NEUT % 47.3 % (42.8-82.8); PLATELET COUNT 236 K/MM3 (134-434); RBC 4.34 M/mm3 (4.00-5.60); RDW 14.3 % (11.9-15.9); WHITE BLOOD COUNT 3.9 K/mm3 (4.0-10.0)
[2017-11-21 11:37] LABS: ALBUMIN 3.1 g/dl (3.4-5.0); ANION GAP 7 (8-16); BLOOD UREA NITROGEN 24 mg/dL (7-18); CALCIUM 8.3 mg/dL (8.5-10.1); CHLORIDE 107 mmol/L (98-107); CO2 23 mmol/L (21-32); GLUCOSE,RANDOM 90 mg/dL (74-106); POTASSIUM 4.9 mmol/L (3.5-5.1); SGPT/ALT 77 U/L (12-78); SODIUM 137 mmol/L (136-145)
[2017-11-21 11:39] LABS: ALK PHOS 121 U/L (45-117); BILIRUBIN,TOTAL 0.3 mg/dL (0.2-1.0); CREATININE 1.3 mg/dL (0.7-1.3); SGOT/AST 74 U/L (15-37); TOT PROT 7.2 g/dl (6.4-8.2)
[2017-11-21] MEDS ORDERED: ALBUTEROL SO4 2.5/IPRATROPIUM 0.5 INH SOL 3 ML VIAL.NEB. NEB ONE (12:07)
[2017-11-21] MEDS ORDERED: IBUPROFEN 400 MG TABLET (FP) PO ONE (12:07)
--- NOTE | 2017-11-21 14:38 | HP ---
Admitting History and Physical - Past Medical History Cardiovascular: Yes: CAD, HTN, Hyperlipdemia Renal/: Yes: BPH - Smoking History Smoking history: Current every day smoker Have you smoked in the past 12 months: Yes Aproximately how many cigarettes per day: 2 - Alcohol/Substance Use Hx Alcohol Use: No Home Medications - Allergies Allergies/Adverse Reactions: Allergies Allergy/AdvReac Type Severity Reaction Status Date / Time No Known Allergies Allergy Verified 11/20/17 14:14 - Home Medications Home Medications: Ambulatory Orders Ascorbate Calcium [Vitamin C] 0 mg PO DAILY 11/06/17 Multivitamin [Daily Multiple Vitamin] 1 each PO DAILY 11/06/17 Tamsulosin HCl [Flomax] 0.4 mg PO DAILY 11/06/17 Physical Examination Vital Signs: Vital Signs Temperature 97.9 F 11/21/17 10:07 Pulse Rate 58 L 11/21/17 10:07 Respiratory Rate 18 11/21/17 10:07 Blood Pressure 92/52 11/21/17 10:07 O2 Sat by Pulse Oximetry (%) 100 11/21/17 10:07 Labs: CBC, BMP 11/21/17 10:55 11/21/17 10:55
--- NOTE | 2017-11-21 14:47 | CON.ID ---
Consult Consult Specialty:: infectious diseases Referred by:: Reason for Consultation:: dirrhoea,weakness - History of Present Illness Chief Complaint: dirrhoea weakness History of Present Illness: The patient was admitted last week for a UTI and was getting IV antibiotics. patient had esbl uti patient was doing well and was feeling much better,when he started to have loose bowel movements since last couple of days associated with abd pain patient was PO bactrim and PO pantoprazole. this did not help the patient. He states since then he's had watery diarrhea every time he eats or drinks. . The patient had a tactile fever yesterday. He denies WAGONER, cough, vomiting, BRBPR , melena, CP, SOB, currently the patient is feeling well work up shows patient is positive for cdiff antigen - History Source History Provided By: Patient Limitations to Obtaining History: No Limitations - Past Medical History Cardio/Vascular: Yes: CAD, HTN, Hyperlipdemia Renal/: Yes: BPH - Alcohol/Substance Use Hx Alcohol Use: No - Smoking History Smoking history: Current every day smoker Have you smoked in the past 12 months: Yes Aproximately how many cigarettes per day: 2 Home Medications - Allergies Allergies/Adverse Reactions: Allergies Allergy/AdvReac Type Severity Reaction Status Date / Time No Known Allergies Allergy Verified 11/20/17 14:14 - Home Medications Home Medications: Ambulatory Orders Ascorbate Calcium [Vitamin C] 0 mg PO DAILY 11/06/17 Multivitamin [Daily Multiple Vitamin] 1 each PO DAILY 11/06/17 Tamsulosin HCl [Flomax] 0.4 mg PO DAILY 11/06/17 Metronidazole [Flagyl -] 500 mg PO TID #21 tablet 11/21/17 Review of Systems - Review of Systems Constitutional: reports: No Symptoms Eyes: reports: No Symptoms HENT: reports: No Symptoms Neck: reports: No Symptoms Cardiovascular: reports: No Symptoms Respiratory: reports: No Symptoms Gastrointestinal: reports: Abdominal Pain, Diarrhea, Other Genitourinary: reports: No Symptoms Musculoskeletal: reports: No Symptoms Integumentary: reports: No Symptoms Neurological: reports: No Symptoms Endocrine: reports: No Symptoms Hematology/Lymphatic: reports: No Symptoms Psychiatric: reports: No Symptoms Physical Exam Vital Signs: Vital Signs Temperature 97.9 F 11/21/17 10:07 Pulse Rate 58 L 11/21/17 10:07 Respiratory Rate 18 01/22/18 10:07 Blood Pressure 92/52 11/21/17 10:07 O2 Sat by Pulse Oximetry (%) 100 11/21/17 10:07 Constitutional: Yes: No Distress, Calm HENT: Yes: Atraumatic Neck: Yes: Supple, Trachea Midline Cardiovascular: Yes: Regular Rate and Rhythm Respiratory: Yes: Regular, CTA Bilaterally Gastrointestinal: Yes: Normal Bowel Sounds, Soft Musculoskeletal: Yes: WNL Extremities: Yes: WNL Neurological: Yes: Alert, Oriented Psychiatric: Yes: Alert, Oriented Labs: CBC, BMP 11/21/17 10:55 11/21/17 10:55 Assessment/Plan patient looks stable and wants to go home dirrhoea esbl bacteremia abd pain weakness plan since patient is doing well we can give him a course of flagyl 500 mg three times a day for about 7 days and monitor for dirrhoe if dirrhoea does not blanca then he will need to be admitted and monitored
[2017-11-21 14:48] VITALS: BP 97/62; PULSE 74; TEMP 98.1
== END 2017-11-21 15:00 | disposition home or self-care (01) ==
LOC: JER 13:49 → UNDOADMOB 21:24 → JERBED 21:24 → INTOOBSV 11-21 02:20 → OBSVTOIN 11-21 02:20 → UNDODISOB 11-21 15:00
PROVIDERS: ADMIT Internal Medicine; ATTEND Internal Medicine
PROC: 3E0337Z Introduction of Electrolytic and Water Balance Substance into Peripheral Vein, Percutaneous Approach (ICD-10-PCS; principal; 2017-11-21)
DX: R19.7 Diarrhea, unspecified (principal); N17.9 Acute kidney failure, unspecified; I10 Essential (primary) hypertension; E78.5 Hyperlipidemia, unspecified; F17.210 Nicotine dependence, cigarettes, uncomplicated; I25.10 Atherosclerotic heart disease of native coronary artery without angina pectoris; N40.0 Benign prostatic hyperplasia without lower urinary tract symptoms
CPT/HCPCS: 36415; 80053; 82550; 82962; 84484; 85025; 87045; 87046; 87086; 87177; 87209; 87324; 87449; 93005; 93010; 96360; 99283-25; G0378

== ENCOUNTER 2018-06-09 10:30 | Day surgery (SDC) | payer OTHER, MEDICARE ==
[2018-06-07 16:34] VITALS: BMI 19.1
[2018-06-09] MEDS ORDERED: ACETAMINOPHEN 325 MG TABLET (FP) PO PRN ×2 (14:32→15:32)
[2018-06-09] MEDS ORDERED: fentaNYL CITRATE 250 MCG/5 ML VIAL ONE (14:33)
[2018-06-09] MEDS ORDERED: ceFAZolin SODIUM 1 GM VIAL IVPB ONE (14:34)
--- NOTE | 2018-06-09 14:36 | OP ---
Operative Note - Note: Operative Date: 06/09/18 Pre-Operative Diagnosis: boh with luts and hooker Operation: turp/tuvp Findings: trilobar prostate hypertrophy Post-Operative Diagnosis: Same as Pre-op Surgeon: Momo Ivey Anesthesia: General Specimens Removed: prostate chips Estimated Blood Loss (mls): 40 Drains & Tubes with Location: 24f 30cc stallings Drains, Volume Out (mls): 0 Blood Volume Replaced (mls): 0 Operative Report Dictated: Yes
[2018-06-09] MEDS ORDERED: ceFAZolin SODIUM 1 GM VIAL ONE (14:37)
--- NOTE | 2018-06-09 15:00 | HP ---
DATE OF ADMISSION: DATE OF DICTATION: 06/09/2018 Patient is a 72-year-old male admitted for prostate vaporization. He has had a long history of prostatism including frequency, urgency, nocturia, terminal dribbling and feelings of incomplete bladder emptying. The patient also has history of coronary artery disease. He had history of a stomach ulcer and gastroesophageal reflux disease. He recently underwent coronary stent placement. He is a former smoker. He denies any diabetes or allergies. He is on aspirin, Flomax and vitamins at home. PHYSICAL EXAMINATION: General: Revealed a well-developed adult male. Abdomen: Soft. No CVA tenderness is elicited. Genitalia: Atraumatic. Rectal: Prostate is 3+, firm and nontender. Extremities: Revealed full range of motion with no cyanosis, clubbing or edema. IMPRESSION: Obstructing prostate gland. PLAN: Transurethral vaporization of the prostate. Procedure was explained fully to patient in detail and he agrees. Vera [id number]
[2018-06-09] MEDS ORDERED: PROMETHAZINE HCL 25 MG/1 ML VIAL IVPUSH PRN (15:04)
[2018-06-09] MEDS ORDERED: ONDANSETRON 4 MG/2 ML VIAL IVPUSH PRN (15:04)
[2018-06-09] MEDS ORDERED: oxyCODONE HCL 5 MG TABLET PO PRN ×2 (15:04→15:32)
[2018-06-09] MEDS ORDERED: LACTATED RINGERS SOLUTION 1,000 ML IV SCH (15:15)
--- NOTE | 2018-06-09 18:20 | OP ---
DATE OF OPERATION: 06/09/2018 PREOPERATIVE DIAGNOSIS: Prostatism, benign prostatic hypertrophy, bladder outlet obstruction. POSTOPERATIVE DIAGNOSIS: Prostatism, benign prostatic hypertrophy, bladder outlet obstruction. OPERATIVE PROCEDURE: Cystourethroscopy and transurethral resection of prostate. ANESTHESIA: General anesthesia. DESCRIPTION OF PROCEDURE: Under above stated anesthesia, patient prepped and draped in the usual sterile manner. He is placed in the dorsal lithotomy position. A was inserted. The patient had a previous cystoscopy which revealed grade 3 trabeculation of the bladder. No lesions or calculi were seen. Vaporization of the prostate was commenced at the 6 o'clock position of the right lateral lobe. This was carried on up to the 12 o'clock position. Same thing was done to the left lateral lobe. Lastly, the median lobe was resected. A was introduced and hemostasis was secured with vaporization. Prostate chips were evacuated with an Ellik evacuator. No active bleeding was noted. The bladder was emptied. The scope was removed. The 24 Azeri 30 mL Escobar was inserted. This was connected to a drainage bag. The patient tolerated the procedure well. He returned to the recovery room in good condition. Vera [id number]
[2018-06-09 18:59] VITALS: BP 110/65; PULSE 58; TEMP 97.4
--- NOTE | 2018-06-13 15:09 | PATH ---
Surgical Pathology Report Patient Name: RICHARD PERALTA Med. Rec. #: [id number] /Age/Gender: 1945 (Age: 72) / M Account: [id number] Location: [facility] SURGICAL Taken: 06/09/2018 Received: 06/12/2018 Reported: 06/13/2018 Physicians: Momo Ivey M.D. Specimen(s) Received PROSTATE CHIPS Clinical History Hypertrophy of prostate Final Diagnosis PROSTATE, TRANSURETHRAL RESECTION OF PROSTATE: BENIGN PROSTATIC TISSUE WITH FOCAL CHRONIC INFLAMMATION, CYSTIC CHANGES, GLANDULAR, AND STROMAL HYPERPLASIA. Electronically Signed Eugenia Foss M.D. Gross Description Received in formalin labeled "prostate tissue," is a 4 g, 5.0 x 4.2 x 0.4 cm aggregate of multiple sky, irregular, firm to rubbery portions of tissue, consistent with prostate tissue. The specimen is entirely submitted in 5 cassettes. /06/12/2018 saudi06/12/2018
== END 2018-06-09 18:59 | disposition home or self-care (01) ==
LOC: JASU-SURG 10:30
PROVIDERS: ATTEND Urology
PROC: 0V508ZZ Destruction of Prostate, Via Natural or Artificial Opening Endoscopic (ICD-10-PCS; principal; 2018-06-09 12:30)
DX: N40.0 Benign prostatic hyperplasia without lower urinary tract symptoms (principal); N32.0 Bladder-neck obstruction
CPT/HCPCS: 87086; 88305-TC; 94760

== ENCOUNTER 2025-04-30 14:16 | Emergency (ER) | payer OTHER, MEDICARE ==
[2025-04-30 14:41] VITALS: BP 108/67; PULSE 69; RESP 20; TEMP 98.4; BMI 18.6
[2025-04-30] MEDS: ACETAMINOPHEN 500 MG TABLET (FP) PO ONE (14:45)
== END 2025-04-30 16:34 | disposition home or self-care (01) ==
LOC: FER 14:16 → MERGE 14:16 → FER 16:34
DX: R07.81 Pleurodynia (principal)
CPT/HCPCS: 71101-TC-RT-FY; 99283-25

== ENCOUNTER 2025-05-09 06:53 | Day surgery (SDC) | payer OTHER, MEDICARE ==
[2025-04-23 13:41] VITALS: BMI 19.3
[2025-05-09] MEDS: LIDOCAINE HCL 1% PRESERVATIVE FREE - 30ML VIAL IJ ONE ×2 (08:15)
[2025-05-09] MEDS: IOHEXOL 180 MG/1 ML ML IJ ONE ×2 (08:18)
[2025-05-09] MEDS: DEXAMETHASONE SOD PHOSPHATE 10 MG/1 ML VIAL IM ONE ×2 (08:22)
[2025-05-09 08:35] VITALS: BP 139/74; PULSE 57; RESP 16; TEMP 97.9
[2025-05-09] MEDS ORDERED: ACETAMINOPHEN 500 MG TABLET (FP) PO PRN (09:15)
== END 2025-05-09 09:24 | disposition home or self-care (01) ==
LOC: JASU-SURG 06:53
PROVIDERS: ATTEND Pain Medicine Pain Medicine
PROC: 3E0R3BZ Introduction of Anesthetic Agent into Spinal Canal, Percutaneous Approach (ICD-10-PCS; 2025-05-09)
PROC: 3E0R33Z Introduction of Anti-inflammatory into Spinal Canal, Percutaneous Approach (ICD-10-PCS; principal; 2025-05-09 08:15)
DX: M54.16 Radiculopathy, lumbar region (principal)
CPT/HCPCS: 76000-TC-FY; J1100

== ENCOUNTER 2025-06-27 06:16 | Day surgery (SDC) | payer OTHER, MEDICARE ==
[2025-06-26 11:10] VITALS: BMI 19.3
[2025-06-27 10:24] VITALS: RESP 18
[2025-06-27] MEDS: LIDOCAINE HCL 1% PRESERVATIVE FREE - 30ML VIAL IJ ONE ×2 (11:45)
[2025-06-27 12:47] VITALS: BP 144/78; PULSE 66; TEMP 97
== END 2025-06-27 13:05 | disposition home or self-care (01) ==
LOC: JASU-SURG 06:16
PROVIDERS: ATTEND Pain Medicine Pain Medicine
PROC: 01HY3MZ Insertion of Neurostimulator Lead into Peripheral Nerve, Percutaneous Approach (ICD-10-PCS; principal; 2025-06-27 11:45)
DX: G89.4 Chronic pain syndrome (principal)
CPT/HCPCS: 64555; C1778